=== PATIENT | male | born 1970 | race Two or more races ===

== ENCOUNTER 2020-05-12 12:35 | Day surgery (SDC) | payer OTHER, SELFPAY ==
[2020-05-05 13:26] VITALS: BMI 24.6
--- NOTE | 2020-05-11 11:49 | HO.ANESPROP2 ---
HPI - Anesthesia Eval Consult details Narrative: 49yo M for colonoscopy: screening [facility] Past Medical History Medical History Diabetes Elevated cholesterol HTN (hypertension) Lab test negative for COVID-19 virus Surgical History Surgical History History of ear surgery Social History Social History Smoking Status: Never smoker Use of substances other than those prescribed or required for medical reasons: No Advance Directives Information Provided: No Recently lost weight without trying: No Meds Allergies Allergy/AdvReac Type Severity Reaction Status Date / Time No Known Allergies Allergy Verified 05/05/20 13:29 Home Medications Medication Instructions Recorded Confirmed Type amlodipine-benazepril 1 cap PO DAILY 05/05/20 05/05/20 History atorvastatin 10 mg PO BEDTIME 05/05/20 05/05/20 History metformin 850 mg PO DAILY 05/05/20 05/05/20 History Exam Exam Date and Time: May 11, 2020 1149 Height,Weight and Vital Signs: Height 5 ft 10.47 in Weight 79 kg Assessment and Plan Assessment Anesthesia Assessment: Chart Reviewed
[2020-05-12 12:58] VITALS: BP 153/98; PULSE 84; RESP 16; TEMP 36.7; O2SAT 99
[2020-05-12 13:08] LABS: Glucose, Whole Blood 88 mg/dL (60-115)
[2020-05-12] MEDS: Lactated Ringers 1,000 ML 100 ML IVCONT (13:14)
--- NOTE | 2020-05-12 13:51 | MHC.SHP ---
Pre-Procedural Eval Section A The patient is an INPATIENT: No The History & Physical has been completed within 30 days and I have reviewed it.: No Section B Chief Complaint: Screening Details of Present Illness: colon cancer screening Relevant Family History (Specify if Yes): No Relevant Social History: None Present Medications: see Short Stay Collaborative assessment Medical History: Significant History (diabetes, hypertension) History of Previous Operations: No relevant previous surgery Allergies: Allergies Allergy/AdvReac Type Severity Reaction Status Date / Time No Known Allergies Allergy Verified 05/05/20 13:29 Review of Systems Sugical H&P ROS: Negative: Constitution, Respiratory (never smoked) and Gastrointestinal and Yes, Specify: Cardiovascular (Hypertension) and Endocrine (diabetes) Exam Surgical H&P Exam: Normal: HEENT, Normal: Heart, Normal: Lungs, Normal: Extremities and Normal: Abdomen Plan Diagnosis/Plan: Unchanged Patient has been examined and remains a candidate for the planned procedure-yes
[2020-05-12 14:40] VITALS: BP 103/65; PULSE 80; RESP 16; TEMP 35.9; O2SAT 100
[2020-05-12 14:55] VITALS: BP 113/72; PULSE 73; RESP 16; O2SAT 98
[2020-05-12 15:02] VITALS: PULSE 85; O2SAT 100
[2020-05-12 15:10] VITALS: BP 125/84; PULSE 88; RESP 16; O2SAT 100
[2020-05-12 15:21] VITALS: BP 125/84; PULSE 78; RESP 16; TEMP 36.1; O2SAT 100
--- NOTE | 2020-05-13 08:19 | OP_ITS ---
SURGEON: Saira Valverde MD PREOPERATIVE DIAGNOSIS: Colon cancer screening. POSTOPERATIVE DIAGNOSIS: Colonic polyps.: ESTIMATED BLOOD LOSS: Minimal blood loss. COMPLICATIONS: None. ANESTHESIA: Monitored ANESTHESIOLOGIST: Donavan Marino CRNA ASSISTANTS: None. SPECIMENS: Specimen removed: polyp at 64 cm, rectal polyp. ELECTRIC RANGE SERVICER: Saira Valverde M.D. PROCEDURES PERFORMED: Colonoscopy, excisional polypectomy at 64 cm, Resolution clipping, 1-cm polyp, small base, hot snare cautery, Erbe unit. FINDINGS: Digital rectal exam revealed prostate to be normal to digital palpation. Video colonoscope was introduced without difficulty. It was navigated into the rectosigmoid and up through sigmoid, descending, and past hepatic flexure into the transverse colon. At this point, the scope had a tendency for looping. The patient was placed initially on his back and then on his right side. With extrinsic abdominal pressure, we were able to facilitate movement through the hepatic flexure and ascending colon into the cecal cap. The prep was good. As we pulled back, there was a polyp identified at 64 cm, which was removed excisionally with a cold biopsy forceps. There was Resolution clip placed to reappose the base defect of the polyp. Continued withdrawal of the scope showed an 8 to 10 mm polyp with a short stalk in the rectum, which was removed using the hexagonal snare Erbe cautery, clean base. This was retrieved. Anorectal verge was clear. PLAN: Current recommendations for repeat asymptomatic screening in an individual with polyps is 5 years. Any changes that need to be made would reflect information from the Pathology. TYPE OF ANESTHESIA: Monitored. GRAFT OR IMPLANTS: No grafts or implants, but Resolution clip was placed. CONDITION POSTPROCEDURE: Stable. Saira Valverde MD MEN/MODL / [id number] [facility]
== END 2020-05-12 15:43 | disposition home or self-care (01) ==
PROVIDERS: PCP Internal Medicine; Visit Provider Internal Medicine Gastroenterology
PROC: 0DJD8ZZ Inspection of Lower Intestinal Tract, Via Natural or Artificial Opening Endoscopic (ICD-10-PCS; CPT 45378; principal; 2020-05-12 13:40)
DX: Z12.11 Encounter for screening for malignant neoplasm of colon (principal); D12.4 Benign neoplasm of descending colon; D12.8 Benign neoplasm of rectum; I10 Essential (primary) hypertension; E11.9 Type 2 diabetes mellitus without complications; E78.00 Pure hypercholesterolemia, unspecified; Z79.84 Long term (current) use of oral hypoglycemic drugs; Z79.899 Other long term (current) drug therapy
CPT/HCPCS: 45385; 45380; 82947; 88305

== ENCOUNTER → 2020-05-23 08:42 | Outpatient (BNVA) | payer OTHER, SELFPAY | PROVIDERS: PCP Internal Medicine; Referring Provider Internal Medicine; Visit Provider Physician Assistant | DX: D12.6 Benign neoplasm of colon, unspecified (principal); Z98.890 Other specified postprocedural states | CPT/HCPCS: 99213 ==